=== PATIENT | female | born 1960 | race Caucasian/White ===

== ENCOUNTER 2019-07-18 16:12 | Emergency (ER) | payer BC ==
[~2019-07-18] VITALS: Ht 167.6 cm; Wt 90.7 kg
[2019-07-18] MEDS ORDERED: CRESTOR5 MG (16:43)
[2019-07-18] MEDS ORDERED: ZESTRIL5 MG (16:43)
== END 2019-07-18 18:16 | disposition home or self-care (01) ==
LOC: ER 16:12
DX: T17.1XXA Foreign body in nostril, initial encounter (principal); W45.8XXA Other foreign body or object entering through skin, initial encounter; Y93.89 Activity, other specified; Y92.89 Other specified places as the place of occurrence of the external cause; Y99.8 Other external cause status